=== PATIENT | male | born 1960 | race Hispanic/Latino ===

== ENCOUNTER 2021-01-20 | Emergency (ER) | payer MEDICARE ==
[2021-01-20] MEDS ORDERED: ASPIRIN ADULT L81 M2 PO (05:50)
[2021-01-20] MEDS ORDERED: VOLTAREN - GENE75 MG PO (05:58)
[2021-01-20] MEDS ORDERED: TRAMADOL HYDROC50 MG PO (05:58)
[2021-01-20] MEDS ORDERED: AMOXICILLIN500 MG PO (05:58)
== END 2021-01-20 06:12 | disposition home or self-care (01) ==
DX: K02.9 Dental caries, unspecified (principal)

== ENCOUNTER 2021-01-24 09:31 | Emergency (ER) | payer MEDICARE ==
[~2021-01-24 09:31] MED LIST: AMOXICILLIN500 MG PO; ASPIRIN ADULT L81 M2 PO; TRAMADOL HYDROC50 MG PO; VOLTAREN - GENE75 MG PO
[2021-01-24 10:18] LABS: IMMATURE GRANULOCYTES 0.6 % (0.0-5.0); MEAN CELL VOLUME 93.6 fL CALC (80.0-100.0); MEAN CORPUSCULAR HGB 31.2 pG CALC (26.0-32.0); MEAN CORPUSCULAR HGB CONC 33.3 g/dL CAL (32.0-36.0); NEUT# 5.78 thou/uL (1.82-7.42); RED BLOOD COUNT 4.81 mill/uL (4.70-6.10); RED CELL DISTRI WIDTH 13.6 % (11.5-15.5)
[2021-01-24 10:37] LABS: ACT PARTIAL THROMBO TIME 25.2 SECONDS (20.0-32.5); PROTHROMBIN TIME 10.6 SECONDS (9.0-12.5)
[2021-01-24 10:38] LABS: ALBUMIN 4.6 g/dL (3.2-5.0); ALKALINE PHOSPHATASE 77 u/l (38-126); AMYLASE 55 u/l (30-110); ANION GAP 14 (6-22 (CALC)); BUN 12 mg/dL (9-20); BUN/CREATININE RATIO 9 (12-20 (CALC)); CARBON DIOXIDE 24 mmol/l (22-30); CHLORIDE 103 mmol/l (95-108); CREATININE 1.2 mg/dL (0.7-1.3); GFR > 60 ML/MIN (>=60 (CALC)); GFR FOR AFR.AMER. > 60 ML/MIN (>=60 (CALC)); LIPASE 124 u/l (23-300); MAGNESIUM 1.8 mg/dL (1.6-2.3); POTASSIUM 4.2 mmol/l (3.5-5.1); SGOT/AST 38 u/l (17-59); SODIUM 136 mmol/l (137-146); TOTAL PROTEIN 7.8 g/dL (6.3-8.2)
[2021-01-24 13:52] VITALS: BP 116/70
== END 2021-01-24 13:52 | disposition left against medical advice (07) ==
LOC: ED 09:31
DX: R07.9 Chest pain, unspecified (principal); I25.10 Atherosclerotic heart disease of native coronary artery without angina pectoris; I49.3 Ventricular premature depolarization; Z91.19 Patient's noncompliance with other medical treatment and regimen; Z95.1 Presence of aortocoronary bypass graft; Z95.810 Presence of automatic (implantable) cardiac defibrillator; Z20.822 Contact with and (suspected) exposure to COVID-19
CPT/HCPCS: Q9967

== ENCOUNTER 2021-11-21 23:34 | Observation (INO) | payer MEDICARE ==
[~2021-11-21] VITALS: Ht 177.8 cm; Wt 102.0 kg
--- NOTE | 2021-11-21 23:40 | NUR ---
PT TO ROOM VIA WHEELCHAIR FOR BEDSIDE TRIAGE
--- NOTE | 2021-11-22 00:36 | NUR ---
IV ACCESS OTBAINED AND EKG COMPLETED
[2021-11-22 01:00] LABS: HEMATOCRIT 45.6 % (39.0-50.0); IMMATURE GRANULOCYTES 0.1 % (0.0-5.0); MEAN CELL VOLUME 97.2 fL CALC (80.0-100.0); MEAN CORPUSCULAR HGB CONC 32.9 g/dL CAL (32.0-36.0); NEUT# 4.41 thou/uL (1.82-7.42); RED BLOOD COUNT 4.69 mill/uL (4.70-6.10); RED CELL DISTRI WIDTH 14.8 % (11.5-15.5)
--- NOTE | 2021-11-22 01:00 | NUR ---
Reassessment of patient completed. No distress noted.
[2021-11-22 01:16] LABS: ALKALINE PHOSPHATASE 56 u/l (38-126); AMYLASE 77 u/l (30-110); ANION GAP 14 (6-22 (CALC)); BILIRUBIN, TOTAL 1.1 mg/dL (0.0-1.4); BUN 15 mg/dL (8-23); BUN/CREATININE RATIO 11 (12-20 (CALC)); CARBON DIOXIDE 22 mmol/l (22-30); CHLORIDE 106 mmol/l (95-108); CREATININE 1.4 mg/dL (0.7-1.3); GFR 52 ML/MIN (>=60 (CALC)); GFR FOR AFR.AMER. > 60 ML/MIN (>=60 (CALC)); LIPASE 542 u/l (23-300); SGOT/AST 25 u/l (19-48); SODIUM 138 mmol/l (137-146)
[2021-11-22 01:17] LABS: D-DIMER 1.27 mg/L (0.19-0.60)
[2021-11-22 01:19] LABS: ALBUMIN 3.6 g/dL (3.2-5.0); TOTAL PROTEIN 6.2 g/dL (6.3-8.2)
[2021-11-22 01:28] LABS: MYOGLOBIN 37 ng/mL (0 - 121)
[2021-11-22 01:29] LABS: ACT PARTIAL THROMBO TIME 26.7 SECONDS (20.0-32.5); INTERNATIONAL NORMALIZED RATIO 1.2 RATIO (0.7-1.3); PROTHROMBIN TIME 12.4 SECONDS (9.0-12.5)
--- NOTE | 2021-11-22 01:48 | NUR ---
PT C/O SOB AFTER XRAY DONE AND STARTED CRYING. PT SATS 96-98%.PT REQUESTING OXYGEN. O2 VIA NASAL CANNULA AT 2 LPM. MADE AWARE.
--- NOTE | 2021-11-22 02:00 | NUR ---
Reassessment of patient completed. No distress noted.
--- NOTE | 2021-11-22 03:00 | NUR ---
Reassessment of patient completed. No distress noted.
[2021-11-22 03:47] LABS: URINE BLOOD DIPSTICK LARGE (NEGATIVE); URINE GLUCOSE - DIPSTICK NEGATIVE (NEGATIVE); URINE KETONE TRACE mg/dL (NEGATIVE); URINE LEUK ESTERASE NEGATIVE (NEGATIVE); URINE PROTEIN - DIPSTICK 100 mg/dL (NEG-TRACE); URINE SPECIFIC GRAVITY >=1.030
[2021-11-22 03:49] LABS: URINE BILIRUBIN - DIPSTICK MODERATE (NEGATIVE); URINE NITRITE - DIPSTICK NEGATIVE (Negative)
[2021-11-22 03:59] LABS: URINE BACTERIA FEW hpf; URINE MUCUS FEW hpf (NONE-FEW); URINE RBC 50-100 RBC/hpf (0-5); URINE SQUAMOUS EPITHELIAL CELL FEW EPI/hpf (0-FEW)
[2021-11-22 04:00] LABS: URINE COLOR BROWN
--- NOTE | 2021-11-22 04:00 | NUR ---
Reassessment of patient completed. No distress noted.
--- NOTE | 2021-11-22 05:05 | NUR ---
pt calls asking for assist to bathroom encouarged to use bsc as he has called staff multiple times regarding SOB etc...pt states well the other nurse gave me something and thats better now i can just go to the bathroom, monitoring equipment/IVF disconnect ed and pt ambulates to bathroom with no sob or distress noted
--- NOTE | 2021-11-22 05:38 | NUR ---
SITTING UP IN CHAIR
--- NOTE | 2021-11-22 06:58 | NUR ---
REPORT CALLED [facility]
--- NOTE | 2021-11-22 07:42 | NUR ---
Reassessment of patient completed. No distress noted.
--- NOTE | 2021-11-22 08:00 | NUR ---
PT ARRIVED TO THE FLOOR IN STABLE CONDITION VIA WHEELCHAIR AND ONE PERSON FROM THE ER. PT AMBULATORY FROM THE WHEELCHAIR TO THE BED. VSS, ORIENTATED TO ROOM, RIGHTS AND RESPONSIBILITIES AND CALL LIGHT. STATES UNDERSTANDING. HISTORY AND ASSESSMENT PREFORMED. AWARE OF PT'S ARRIVAL TO THE FLOOR. PT DENIES PAIN AT THIS TIME. INSTRUCTED PT TO CALL FOR ASSISTANCE. VERBALIZES UNDERSTANDING.
[2021-11-22 08:47] VITALS: BP 125/92
[2021-11-22 10:31] VITALS: BP 127/71
--- NOTE | 2021-11-22 10:36 | NUR ---
PHARMACY ON PHONE AT THIS TIME TO COMPLETE MEDICATION RECONCILLIATION. PHONE AT BS. WILL CONTINUE TO MONITOR AND UPDATE MD TO ADJUSTED HOME MED REC
[2021-11-22] MEDS ORDERED: ASPIRIN81 MG PO (10:37)
--- NOTE | 2021-11-22 13:05 | NUR ---
PT GIVEN XANAX AT THIS TIME FOR AGITATION. PT ANXIOUS AND STATES HE SOMETIMES FEELS LIKE HES CHOKING WITH ALL THE ANXIETY. VSS. CALL LIGHT WITHIN REACH. INSTRUCTED PT TO CALL FOR ASSISTANCE, VERBALIZES UNDERSTANDING.
[2021-11-22] MEDS ORDERED: ATORVASTATIN CA20 MG PO (13:59)
[2021-11-22] MEDS ORDERED: ELIQUIS5 MG PO (14:00)
--- NOTE | 2021-11-22 14:16 | NUR ---
PT REQUESTING TO SEE MD AT THIS TIME. STATES HE WANTS TO GO HOME, CANNOT STAY IN HOSPITAL. MD AGREES FOR DISCHARGE. WILL GIVE LASIX PRIOR TO DISCHARGE
--- NOTE | 2021-11-22 15:10 | NUR ---
PT DISCHARGED AT THIS TIME IN STABLE CONDITION.
== END 2021-11-22 15:16 | disposition home or self-care (01) ==
LOC: ED 23:34 → ED-I 11-22 04:10 → ED 11-22 04:28 → MS2 11-22 04:29
PROVIDERS: Family Medicine; ADMIT Internal Medicine; ATTEND Internal Medicine
DX: I26.99 Other pulmonary embolism without acute cor pulmonale (principal); K85.90 Acute pancreatitis without necrosis or infection, unspecified; I25.10 Atherosclerotic heart disease of native coronary artery without angina pectoris; I50.22 Chronic systolic (congestive) heart failure; I25.2 Old myocardial infarction; T50.916A Underdosing of multiple unspecified drugs, medicaments and biological substances, initial encounter; Z91.128 Patient's intentional underdosing of medication regimen for other reason; Z95.1 Presence of aortocoronary bypass graft; Z95.810 Presence of automatic (implantable) cardiac defibrillator; Z20.822 Contact with and (suspected) exposure to COVID-19
CPT/HCPCS: J1650; Q9967

== ENCOUNTER 2021-11-26 08:20 | Observation (INO) | payer MEDICARE ==
[~2021-11-26] VITALS: Ht 177.8 cm; Wt 100.0 kg
[~2021-11-26 08:20] MED LIST changes: +ASPIRIN81 MG PO; +ATORVASTATIN CA20 MG PO; +ELIQUIS5 MG PO
[2021-11-26 09:07] LABS: HEMATOCRIT 48.7 % (39.0-50.0); HEMOGLOBIN 15.9 g/dl (14.0-18.0); IMMATURE GRANULOCYTES 0.2 % (0.0-5.0); MEAN CELL VOLUME 96.4 fL CALC (80.0-100.0); MEAN CORPUSCULAR HGB 31.5 pG CALC (26.0-32.0); MEAN CORPUSCULAR HGB CONC 32.6 g/dL CAL (32.0-36.0); NEUT# 7.95 thou/uL (1.82-7.42); RED BLOOD COUNT 5.05 mill/uL (4.70-6.10); RED CELL DISTRI WIDTH 14.7 % (11.5-15.5)
[2021-11-26 09:20] LABS: ALBUMIN 4.1 g/dL (3.2-5.0); BILIRUBIN, TOTAL 1.8 mg/dL (0.0-1.4); CREATININE 1.8 mg/dL (0.7-1.3); POTASSIUM 4.6 mmol/l (3.5-5.1); TOTAL PROTEIN 6.9 g/dL (6.3-8.2)
[2021-11-26 09:57] LABS: URINE BLOOD DIPSTICK TRACE-INTACT (NEGATIVE); URINE COLOR YELLOW; URINE GLUCOSE - DIPSTICK NEGATIVE (NEGATIVE); URINE KETONE 15 mg/dL (NEGATIVE); URINE LEUK ESTERASE NEGATIVE (NEGATIVE); URINE PH 5.5 (4.5-8.0); URINE PROTEIN - DIPSTICK TRACE mg/dL (NEG-TRACE); URINE SPECIFIC GRAVITY >=1.030
[2021-11-26 10:00] LABS: URINE BILIRUBIN - DIPSTICK MODERATE (NEGATIVE); URINE NITRITE - DIPSTICK NEGATIVE (Negative)
[2021-11-26] MEDS ORDERED: XARELTO15 MG PO (10:39)
[2021-11-26 11:03] LABS: INTERNATIONAL NORMALIZED RATIO 1.8 RATIO (0.7-1.3); PROTHROMBIN TIME 18.2 SECONDS (9.0-12.5)
[2021-11-26 11:30] VITALS: BP 114/81
[2021-11-26 12:00] VITALS: BP 108/84
[2021-11-26 12:31] VITALS: BP 120/95
[2021-11-26 13:30] VITALS: BP 114/84
[2021-11-26 14:10] VITALS: BP 105/82
[2021-11-27 04:00] VITALS: BP 113/77
[2021-11-27 05:50] LABS: HEMATOCRIT 43.8 % (39.0-50.0); HEMOGLOBIN 14.3 g/dl (14.0-18.0); MEAN CELL VOLUME 97.1 fL CALC (80.0-100.0); MEAN CORPUSCULAR HGB 31.7 pG CALC (26.0-32.0); MEAN CORPUSCULAR HGB CONC 32.6 g/dL CAL (32.0-36.0); RED BLOOD COUNT 4.51 mill/uL (4.70-6.10)
[2021-11-27 06:16] LABS: CREATININE 1.8 mg/dL (0.7-1.3); POTASSIUM 4.5 mmol/l (3.5-5.1)
[2021-11-27] MEDS ORDERED: ZOFRAN4 MG/TAB PO (12:27)
[2021-11-27] MEDS ORDERED: TAMSULOSIN HCL0.4 MG PO (12:27)
[2021-11-27] MEDS ORDERED: OXYCODO-APAP1 TA2 PO (12:28)
== END 2021-11-27 14:31 | disposition home or self-care (01) ==
LOC: ED 08:20 → ED-I 09:32 → ED 10:42 → MS2 10:43
PROVIDERS: Family Medicine; ADMIT Hospitalist; ATTEND Hospitalist
DX: N20.1 Calculus of ureter (principal); I11.0 Hypertensive heart disease with heart failure; E11.9 Type 2 diabetes mellitus without complications; N17.9 Acute kidney failure, unspecified; I50.22 Chronic systolic (congestive) heart failure; I25.10 Atherosclerotic heart disease of native coronary artery without angina pectoris; I25.2 Old myocardial infarction; Z87.442 Personal history of urinary calculi; Z79.01 Long term (current) use of anticoagulants; Z95.1 Presence of aortocoronary bypass graft; Z95.810 Presence of automatic (implantable) cardiac defibrillator; Z20.822 Contact with and (suspected) exposure to COVID-19

== ENCOUNTER 2022-11-10 16:54 | Emergency (ER) | payer MEDICARE ==
[~2022-11-10] VITALS: Ht 177.8 cm; Wt 92.0 kg
[2022-11-10 17:27] VITALS: BP 114/89
[2022-11-10 17:35] LABS: BASO% 0.2 % (0-3); HEMATOCRIT 50.2 % (39.0-50.0); HEMOGLOBIN 16.1 g/dl (14.0-18.0); IMMATURE GRANULOCYTES 0.2 % (0.0-5.0); LYMPH% 5.8 % (15-41); MEAN CELL VOLUME 95.8 fL CALC (80.0-100.0); MEAN CORPUSCULAR HGB 30.7 pG CALC (26.0-32.0); MEAN CORPUSCULAR HGB CONC 32.1 g/dL CAL (32.0-36.0); MONO% 2.2 % (2-13); NEUT# 11.41 thou/uL (1.82-7.42); NEUT% 91.6 % (42-76); RED BLOOD COUNT 5.24 mill/uL (4.70-6.10); RED CELL DISTRI WIDTH 14.2 % (11.5-15.5)
[2022-11-10 17:50] LABS: ALBUMIN 4.8 g/dL (3.2-5.0); BILIRUBIN, TOTAL 1.5 mg/dL (0.2-1.3); CREATININE 1.5 mg/dL (0.7-1.3)
[2022-11-10 17:56] LABS: POTASSIUM 4.7 mmol/l (3.5-5.1)
[2022-11-10 18:22] VITALS: BP 96/56
[2022-11-10 18:40] VITALS: BP 108/75
[2022-11-10 19:49] VITALS: BP 108/75
== END 2022-11-10 19:48 | disposition short-term general hospital (02) ==
LOC: ED 16:54
PROVIDERS: Nurse Practitioner
DX: I21.4 Non-ST elevation (NSTEMI) myocardial infarction (principal); I44.7 Left bundle-branch block, unspecified; I42.9 Cardiomyopathy, unspecified; R10.13 Epigastric pain; I25.10 Atherosclerotic heart disease of native coronary artery without angina pectoris; E11.9 Type 2 diabetes mellitus without complications; I50.9 Heart failure, unspecified; I25.2 Old myocardial infarction; Z95.1 Presence of aortocoronary bypass graft
CPT/HCPCS: J1644; S0164

== ENCOUNTER → 2022-11-10 | Emergency (ER) | payer MEDICARE ==
[~2022-11-10] VITALS: Ht 177.8 cm; Wt 90.7 kg
[~2022-11-10] MED LIST changes: +OXYCODO-APAP1 TA2 PO; +PROMETHAZINE HY25 M1 PO; +TAMSULOSIN HCL0.4 MG PO; +XARELTO15 MG PO; +ZOFRAN4 MG/TAB PO
[2022-11-10 10:46] VITALS: BP 118/84
[2022-11-10 10:58] LABS: BASO% 1.2 % (0-3); EOS% 1.4 % (0-8); HEMOGLOBIN 15.6 g/dl (14.0-18.0); IMMATURE GRANULOCYTES 0.2 % (0.0-5.0); LYMPH% 21.5 % (15-41); MEAN CORPUSCULAR HGB 30.9 pG CALC (26.0-32.0); MEAN CORPUSCULAR HGB CONC 31.8 g/dL CAL (32.0-36.0); MONO% 7.7 % (2-13); NEUT# 5.51 thou/uL (1.82-7.42); RED BLOOD COUNT 5.05 mill/uL (4.70-6.10); RED CELL DISTRI WIDTH 14.2 % (11.5-15.5)
[2022-11-10 11:00] VITALS: BP 113/71
[2022-11-10 11:09] LABS: ALBUMIN 4.9 g/dL (3.2-5.0); ALKALINE PHOSPHATASE 62 u/l (38-126); BUN 16 mg/dL (8-23); BUN/CREATININE RATIO 11 (12-20 (CALC)); CHLORIDE 107 mmol/l (95-108); CREATININE 1.5 mg/dL (0.7-1.3); GFR FOR AFR.AMER. 57 ML/MIN (>=60 (CALC)); GFR OTHER RACES 47 ML/MIN (>=60 (CALC)); POTASSIUM 3.8 mmol/l (3.5-5.1); SGOT/AST 33 u/l (19-48); SODIUM 139 mmol/l (137-146); TOTAL PROTEIN 8.1 g/dL (6.3-8.2)
[2022-11-10 11:10] LABS: ANION GAP 14 (6-22 (CALC)); BILIRUBIN, TOTAL 1.5 mg/dL (0.2-1.3); CARBON DIOXIDE 22 mmol/l (22-30)
[2022-11-10 13:00] VITALS: BP 114/83
== END | disposition left against medical advice (07) ==
LOC: ED 10:35
PROVIDERS: Family Medicine
DX: R07.9 Chest pain, unspecified (principal); R10.13 Epigastric pain; I44.7 Left bundle-branch block, unspecified; I10 Essential (primary) hypertension; I25.10 Atherosclerotic heart disease of native coronary artery without angina pectoris; E11.9 Type 2 diabetes mellitus without complications; I50.9 Heart failure, unspecified; I25.2 Old myocardial infarction; Z95.1 Presence of aortocoronary bypass graft; Z53.29 Procedure and treatment not carried out because of patient's decision for other reasons; R10.9 Unspecified abdominal pain; R11.2 Nausea with vomiting, unspecified; I21.4 Non-ST elevation (NSTEMI) myocardial infarction; I42.9 Cardiomyopathy, unspecified
CPT/HCPCS: J1644; Q9967; S0164

== ENCOUNTER 2022-12-18 12:04 | Emergency (ER) | payer MEDICARE ==
[~2022-12-18] VITALS: Ht 177.8 cm; Wt 81.6 kg
[2022-12-18] VITALS (77 sets, daily range): BP systolic 55–128; BP diastolic 34–79
[2022-12-18 13:03] LABS: BASO% 1.2 % (0-3); EOS% 0.9 % (0-8); HEMATOCRIT 46.5 % (39.0-50.0); HEMOGLOBIN 15.2 g/dl (14.0-18.0); IMMATURE GRANULOCYTES 0.3 % (0.0-5.0); LYMPH% 12.1 % (15-41); MEAN CELL VOLUME 94.9 fL CALC (80.0-100.0); MEAN CORPUSCULAR HGB CONC 32.7 g/dL CAL (32.0-36.0); MONO% 8.2 % (2-13); NEUT# 5.38 thou/uL (1.82-7.42); NEUT% 77.3 % (42-76); RED BLOOD COUNT 4.9 mill/uL (4.70-6.10); RED CELL DISTRI WIDTH 15.4 % (11.5-15.5)
[2022-12-18 13:36] LABS: ALBUMIN 4.5 g/dL (3.2-5.0); BILIRUBIN, TOTAL 1.5 mg/dL (0.2-1.3); TOTAL PROTEIN 7.9 g/dL (6.3-8.2)
[2022-12-18 13:37] LABS: CREATININE 2.5 mg/dL (0.7-1.3); POTASSIUM 5.2 mmol/l (3.5-5.1)
[2022-12-18] MEDS ORDERED: CORDARONE/200 MG/TAB PO (14:07)
[2022-12-18] MEDS ORDERED: ATORVASTATIN CA80 MG PO (14:07)
[2022-12-18] MEDS ORDERED: CLOPIDOGREL75 MG PO (14:08)
[2022-12-18] MEDS ORDERED: ELIQUIS5 MG PO (14:09)
[2022-12-18] MEDS ORDERED: ENTRESTO 97-1031 TAB (14:09)
[2022-12-18] MEDS ORDERED: ESCITALOPRAM OX10 MG PO (14:10)
[2022-12-18] MEDS ORDERED: FARXIGA5 MG (14:11)
[2022-12-18] MEDS ORDERED: FUROSEMIDE20 MG PO (14:11)
[2022-12-18] MEDS ORDERED: SPIRONOLACTONE25 MG PO (14:11)
[2022-12-18 16:45] LABS: URINE BILIRUBIN - DIPSTICK NEGATIVE (NEGATIVE); URINE BLOOD DIPSTICK MODERATE (NEGATIVE); URINE COLOR YELLOW; URINE GLUCOSE - DIPSTICK 500 mg/dL (NEGATIVE); URINE KETONE TRACE mg/dL (NEGATIVE); URINE LEUK ESTERASE NEGATIVE (NEGATIVE); URINE NITRITE - DIPSTICK NEGATIVE (Negative); URINE PROTEIN - DIPSTICK TRACE mg/dL (NEG-TRACE); URINE SPECIFIC GRAVITY 1.025; URINE UROBILINOGEN - DIPSTICK 0.2 E.U./dL (0.2)
[2022-12-18 16:52] LABS: URINE CASTS FEW lpf (NONE-RARE)
== END 2022-12-18 18:51 | disposition short-term general hospital (02) ==
LOC: ED 12:04
PROVIDERS: Nurse Practitioner
PROC: 3E043XZ Introduction of Vasopressor into Central Vein, Percutaneous Approach (ICD-10-PCS; principal; 2022-12-18)
PROC: 02HV33Z Insertion of Infusion Device into Superior Vena Cava, Percutaneous Approach (ICD-10-PCS; 2022-12-18)
DX: R07.9 Chest pain, unspecified (principal); N17.9 Acute kidney failure, unspecified; R10.10 Upper abdominal pain, unspecified; I95.9 Hypotension, unspecified; I11.0 Hypertensive heart disease with heart failure; I50.9 Heart failure, unspecified; I25.10 Atherosclerotic heart disease of native coronary artery without angina pectoris; E11.9 Type 2 diabetes mellitus without complications; I25.5 Ischemic cardiomyopathy